=== PATIENT | male | born 1995 | race Two or more races ===

== ENCOUNTER 2024-01-14 19:37 | Emergency (ER) | payer MEDICAID, OTHER ==
[~2024-01-14] VITALS: Ht 180.3 cm; Wt 81.8 kg
[2024-01-14 21:30] VITALS: BP 119/74; PULSE 78; RESP 16; TEMP 98.6; O2SAT 97
[2024-01-14] MEDS: IBUPROFEN 800 MG TAB PO ONE (21:31)
== END 2024-01-14 21:37 | disposition home or self-care (01) ==
LOC: ER 19:37
DX: S60.151A Contusion of right little finger with damage to nail, initial encounter (principal); W20.8XXA Other cause of strike by thrown, projected or falling object, initial encounter; Y93.89 Activity, other specified; Y92.89 Other specified places as the place of occurrence of the external cause; Y99.8 Other external cause status
CPT/HCPCS: 29130; 73140